=== PATIENT | male | born 1975 | race Caucasian/White ===

== ENCOUNTER 2024-12-12 12:45 | Inpatient (IN) | payer BC, OTHER ==
[~2024-12-12] VITALS: Ht 167.6 cm; Wt 70.3 kg
[2024-12-12] MEDS: PERFLUTREN PROTEIN-A MICROSPHR (Optison) 0.22 MG/ML 3ML VIAL IV ONE (08:00)
[2024-12-12] MEDS ORDERED: iohexol 350MG/ML 100ml bottle IV ONE (13:19)
--- NOTE | 2024-12-12 13:23 | Physician Documentation ---
History of Present Illness ~ Chief Complaint: Stroke Alert Stated Complaint: L SIDED NUMBNESS/DIZZINESS Time Seen by MD: 13:20 Source: patient Mode of Arrival: POV HPI 48-year-old male presenting with acute onset of left-sided numbness He tells me that he felt normal this morning. At around 11:00 p.m., he stood up and suddenly developed numbness to the left side of his body. He states that he has numbness to left side of his face, his arm, and leg. It has continued since that time. He does report some associated nausea and intermittent dizziness He denies having a headache, vision changes, difficulty speaking. No weakness to his arms or legs. He is able to ambulate. No history of stroke, no history of similar symptoms. He is not on anticoagulation. Medication Reconciliation Allergies: Coded Allergies: No Known Allergies (Unverified , 12/12/24) Scheduled Atorvastatin Calcium* (Lipitor*), 1 TAB PO DAILY Clopidogrel Bisulfate (Plavix), 1 TAB PO DAILY Miscellaneous Medications Home Med List (No Home Medications), (Reported) Review of Systems Gastrointestinal: Reports: nausea Neurological: Reports: dizziness, left sided numbness; Denies: speech problem, headache Physical Exam Vital Signs: Temperature: 98.7, Source: Temporal, Heart Rate: 70, Respiratory Rate: 16, BP: 151/99, Pulse Oximetry: 100, Weight: 70.350 Oxygen Flow Rate: 0 General Appearance General: This is a pleasant and overall well-appearing middle-aged man sitting calmly in the chair HEENT: Atraumatic, oropharynx is moist Heart: Regular rate and rhythm, normal-appearing peripheral perfusion Lungs: normal work of breathing, normal oxygen saturation on room air Abdomen: Soft, nondistended, nontender all quadrants Extremities: Warm and well-perfused Neuro: Alert and oriented. The patient has mild subjective paresthesias to the lateral lower face. He reports paresthesias to the left arm and leg diffusely but reports normal sensation to my light touch exam. He has normal strength in the major muscle groups of the left upper and lower extremities. He is able to stand without difficulty. No facial droop. Speech is clear. Psychiatric: Calm and cooperative with exam Progress Results/Orders Results/Orders Orders - KEMAL NUNEZ MD Cta Neck/Head (12/12/24 13:39) Monitor (12/12/24 13:31) 2 Large Bore Ivs (12/12/24 13:31) Electrocardiogram (12/12/24 13:31) Chest,Single View (12/12/24 13:31) Accucheck (12/12/24 13:31) Page Hospitalist (12/12/24 15:51) Completed Orders - KEMAL NUNEZ MD Cta Neck/Head (12/12/24 13:39) Cbc/Diff (12/12/24 13:31) Chest,Single View (12/12/24 13:31) BMP (12/12/24 13:31) PTT (12/12/24 13:31) Pt Inr (12/12/24 13:31) Aspirin 81mg Chew Tablet (Aspirin 81mg C (12/12/24 13:50) Clopidogrel Tablet (Plavix Tablet) (12/12/24 14:47) Hgb A1c (12/12/24 12:51) Lipid Panel (12/12/24 12:51) Medications Received in ER Medications (Trade) Dose Ordered Sig/Saturnino Route PRN Reason Start Time Stop Time Status Last Admin Dose Admin (aspirin 81MG chew tablet) 324 mg ONCE ONCE PO 12/12/24 13:50 12/12/24 13:51 DC 12/12/24 14:20 324 MG (Plavix tablet) 300 mg ONCE STAT PO 12/12/24 14:47 12/12/24 14:48 DC 12/12/24 15:27 300 MG Vital Signs 12/12/24 12/12/24 12/12/24 12/12/24 13:04 13:40 13:40 14:30 Temp 98.7 Pulse 70 67 63 Resp 16 22 15 B/P (MAP) 151/99 156/93 (114) 142/65 (90) Pulse Ox 100 98 99 100 O2 Delivery Room Air* O2 Flow Rate 0 0 FiO2 21 12/12/24 16:00 Pulse 74 Resp 15 B/P (MAP) 132/45 (74) Pulse Ox 100 Laboratory Tests Test 12/12/24 12:51 White Blood Count 8.1 Red Blood Count 5.14 Hemoglobin 16.2 Hematocrit 46.6 Mean Corpuscular Volume 90.7 Mean Corpuscular Hemoglobin 31.5 H Mean Corpuscular Hemoglobin Concent 34.8 Red Cell Distribution Width 12.9 Platelet Count 247 Mean Platelet Volume 8.5 Neutrophils (%) (Auto) 62.6 Lymphocytes (%) (Auto) 29.3 Monocytes (%) (Auto) 6.7 Eosinophils (%) (Auto) 1.0 Basophils (%) (Auto) 0.4 Neutrophils # (Auto) 5.1 Lymphocytes # (Auto) 2.4 Monocytes # (Auto) 0.5 Eosinophils # (Auto) 0.1 Basophils # (Auto) 0.0 CBC Comment Prothrombin Time 10.0 INR International Normalized Ratio 1.0 Activated Partial Thromboplast Time 29 Coagulation Comments Sodium Level 141 Potassium Level 3.9 Chloride Level 105 Carbon Dioxide Level 27.9 Anion Gap 8 Blood Urea Nitrogen 12 Creatinine 0.97 Estimated GFR/1.73 m2 82 BUN/Creatinine Ratio 12.4 Glucose Level 115 H Hemoglobin A1c 5.1 Calcium Level 8.9 Albumin 3.9 Triglycerides Level 142 H Cholesterol Level 202 H LDL Cholesterol 133 H HDL Cholesterol 48 Cholesterol/HDL Ratio 4.2 Chemistry Comments EKG/XRAY/CT/US/VASC/MRI CT : Impression I personally reviewed the CT scan, in CTA head and neck, and this shows no acute hemorrhage, no large vessel occlusion, no brain mass Consults/PCP Consults/PCP : Additional Comment Consult: I spoke to stroke Neurology. They evaluated the patient, and recommend admission for MRI and further stroke workup. They recommend aspirin and Plavix and a statin Consult: I spoke to the internal medicine service, for admission in the hospital Medical Decision Making Differential Dx:Considerations: Include: CVA, Electrolyte imbalance, Subarachnoid Hemorrhage, TIA Additional Information The patient presents with sudden onset of left-sided numbness. On my initial evaluation in triage, he does have numbness but no other focal neurologic deficits. Stroke order set was initiated. Stroke neurology evaluated the patient as well. Head CT without acute hemorrhage or mass. CTA without large vessel occlusion. Labs were unremarkable including no electrolyte derangement. No other obvious cause identified for his symptoms. Initially, the patient declined admission, and wanted to leave A. My plan was to discharge him with aspirin, Plavix, and a statin. However, he then developed worsening numbness to his left side and decided to stay and be admitted. He will be admitted to the medicine service for further workup and treatment. Departure Time of Disposition: 14:51 Disposition: 07 LEFT AGAINST MEDICAL ADVICE Impression: Primary Impression: Transient cerebral ischemia Additional Impression: Paresthesias Discharge Instructions: Stroke Prevention, [id number] Referrals: NO PRIMARY CARE PROVIDER (PCP) Prescriptions Atorvastatin Calcium* (Lipitor*) 80 Mg Tablet 1 TAB PO DAILY for 30 Days, #30 TAB 6 Refills Prov: KEMAL NUNEZ MD 12/12/24 Clopidogrel Bisulfate (Plavix) 75 Mg Tablet 1 TAB PO DAILY for 21 Days, #21 TAB 0 Refills Prov: KEMAL NUNEZ MD 12/12/24 Comments The exact cause of your symptoms is unclear, but could represent a stroke or TIA. The stroke neurologist recommended admission for an MRI and further testing. Treatment plan per the stroke neurologist: Please take aspirin 81 mg daily ongoing. Please take the Plavix 75 mg daily for 21 days and then stop Please start taking atorvastatin daily, to help lower cholesterol and help prevent a stroke. All of these medications hopefully will help prevent worsening symptoms or a stroke. Please try to make an appointment with the primary care doctor soon as possible for further evaluation Returns to the emergency department if you have any worsening symptoms. Education Educated: Patient Educated regarding: diagnosis, treatment, need for follow up Signature Scribe Signature: [email or web address] Attestation: KEMAL Holloway MD December 12, 2024 13:23
[2024-12-12] MEDS ORDERED: NO HOME MEDS (13:40)
--- NOTE | 2024-12-12 13:43 | RADIOLOGY REPORT ---
CT CT STROKE ALERT Indication: Stroke EXAM DATE: 12/12/2024 01:19 PM COMPARISON: None TECHNIQUE: CT of the head without intravenous contrast. RADIATION DOSE: CTDIvol: 57 mGy, DLP: 1097 mGy*cm FINDINGS: There is no intracranial hemorrhage. There is no extra-axial fluid, mass, mass effect or midline shif t. The ventricles are midline and normal in size. Basilar cisterns are patent. Jones-white differentia tion is maintained. Mastoids well pneumatized. 1 cm left maxillary sinus mucosal retention cyst / polyp.. Imaged portion of the orbits are unremarkable. IMPRESSION: 1. No intracranial hemorrhage or mass effect.
[2024-12-12 13:49] LABS: BASOPHILS % (AUTO) 0.4 % (0-1); EOSINOPHILS # (AUTO) 0.1 X10'3 (0-0.9); HEMATOCRIT 46.6 % (42.0-52.0); HEMOGLOBIN 16.2 g/dl (14.0-17.9); LYMPHOCYTES # (AUTO) 2.4 X10'3 (1.1-4.8); LYMPHOCYTES % (AUTO) 29.3 % (21-51); MEAN CORPUSCULAR HEMOGLOBIN 31.5 PG (27.0-31.0); MEAN CORPUSCULAR HGB CONC 34.8 g/dL (33.0-36.5); MEAN CORPUSCULAR VOLUME 90.7 FL (78-98); MEAN PLATELET VOLUME 8.5 FL (7.4-10.4); MONOCYTES # (AUTO) 0.5 X10'3 (0-0.9); MONOCYTES % (AUTO) 6.7 % (2-12); NEUTROPHILS # (AUTO) 5.1 X10'3 (1.8-7.7); NEUTROPHILS % (AUTO) 62.6 % (42-75); PLATELET COUNT 247 X10'3 (140-440); RED BLOOD COUNT 5.14 X10'6 (4.70-6.10); RED CELL DISTRIBUTION WIDTH 12.9 % (11.5-14.5); WHITE BLOOD COUNT 8.1 X10'3 (4.5-11.0)
[2024-12-12 13:55] LABS: APTT 29 SECONDS (22-32)
--- NOTE | 2024-12-12 13:55 | CONSULTATION REPORT ---
History of Present Illness Providers to CC ~ Allergies: Coded Allergies: No Known Allergies (Unverified , 12/12/24) Home Medications Home Medications Active Reported No Home Medications (Home Med List) Each Physical Exam Last Vital Signs Recorded: Temperature: 98.7, Source: Temporal, Heart Rate: 70, Respiratory Rate: 16, BP: 151/99, Pulse Oximetry: 98, Weight: 70.350 Results Diagram Lab Result Diagram: 12/12/24 1251 Assessment/Plan Additional Plan [facility] Note # Demographics Consult Type: Acute Stroke Level 1 (0-4.5 hrs) Patient Location: Emergency Room First Name: Richard Last Name: Jacqueline Date of : 1975 Age: 48 Gender: Male Facility: [facility] Time of Initial Page (): 12/12/2024 13:36 Time of Return Call (): 12/12/2024 13:37 # HPI Chief Complaint: - numbness History: 48 y/o M was sitting in a meeting when he got dizzy followed by numbness of his face. Went to lunch and his left side felt tingling like it was falling asleep. Symptom onset approx 11 AM. No similar symptoms previously. No provoking factor. Now improved. On no medications at baseline. No associated headache. Symptoms were coming in waves. # Scores Time of exam and NIHSS (): 12/12/2024 13:40 Level of Consciousness 1a: [0] = Alert; keenly responsive LOC Questions 1b: [0] = Answers both questions correctly LOC Commands 1c: [0] = Performs both tasks correctly Best Gaze 2: [0] = Normal Visual 3: [0] = No visual loss Facial Palsy 4: [0] = Normal symmetrical movements Motor Arm Left 5a: [0] = No drift Motor Arm Right 5b: [0] = No drift Motor Leg Left 6a: [0] = No drift Motor Leg Right 6b: [0] = No drift Limb Ataxia 7: [0] = Absent Sensory 8: [1] = Iuci-[id number] sensory loss Best Language 9: [0] = No aphasia Dysarthria 10: [0] = Normal Extinction and Inattention 11: [0] = No abnormality NIHSS Total: 1 ABCD2 Score for TIA: [0] = Age >/= 60 years: No [1] = BP >/= 140/90: Yes [0] = Clinical features of the TIA: other symptoms [2] = Duration of symptoms: >/= 60 minutes [0] = History of diabetes: No ABCD2 Total: 3 # Data Head CT: - no bleed - per radiologist read # Assessment Impression: Minor stroke vs TIA # Plan Thrombolytic/Intervention: NOT IV Thrombolysis or IA Intervention candidate Thrombolytic Exclusion (< 3 hour window): - non-disabling deficit Intraarterial Exclusion: - clinical exam not consistent with presence of large vessel occlusion (LVO), can reconsider if LVO found on vascular imaging Target Blood Pressure: SBP < 220 Labs: - hemoglobin A1c - lipid panel Imaging: (urgency: routine): - MRI Brain without contrast Diagnostic Test: - echo with bubble study Therapy/Evaluation: - PT/OT evaluation - speech/swallow consultation Medication: - Plavix 300 mg PO x1 now, then 75 mg daily x 21 days + asa 81mg x 21 days, followed by monotherapy thereafter - start statin with goal of LDL < 70 Other: - If patient has any neurological deterioration please call me back immediately - LDL < 70 - permissive hypertension - telemetry monitoring - I have discussed my recommendations with the referring provider # Logistics Attestation of consult completion: The patient is located at: [facility]. Facility staff participated in the visit. I performed this telemedicine visit from my offsite office utilizing interactive 2 way audio and visual telecommunication technology. Total time spent in telemedicine encounter: I spent 15 minutes reviewing clinical data and/or imaging, obtaining history, examining the patient, communicating with the onsite care team, and in preparation of this report. # Demographics First Name: Richard Last Name: [facility] Facility: [facility] MONI KYLE MD December 12, 2024 13:55
[2024-12-12 13:59] LABS: ALBUMIN 3.9 G/DL (3.4-5.0); ANION GAP 8 (8-16); BLOOD UREA NITROGEN 12 MG/DL (7-18); BUN/CREATININE RATIO 12.4 (10.0-20.0); CALCIUM 8.9 MG/DL (8.5-10.1); CHLORIDE 105 MMOL/L (99-107); CREATININE 0.97 MG/DL (0.60-1.10); GLUCOSE 115 MG/DL (70-104); POTASSIUM 3.9 MMOL/L (3.5-5.1); SODIUM 141 MMOL/L (135-145); TOTAL CARBON DIOXIDE 27.9 MMOL/L (24-32); eCRCL 82 ML/MIN; eGFR 82 ML/MIN
--- NOTE | 2024-12-12 14:05 | RADIOLOGY REPORT ---
CHEST RADIOGRAPH Indication: Stroke Alert Technique: Single frontal view of the chest was obtained Comparison: None FINDINGS: Lines and Tubes: None Lungs: No focal consolidation. Pleura: No effusion. No pneumothorax. Cardiomediastinal contours: Unremarkable Bones: No acute osseous abnormality. IMPRESSION: No acute cardiopulmonary disease.
[2024-12-12] MEDS: aspirin 81mg tab.chew PO ONE (14:20)
--- NOTE | 2024-12-12 14:24 | RADIOLOGY REPORT ---
Procedure: CT CTA NECK/HEAD HISTORY: LEFT SIDED NUMBNES, DIZZINESS Comparison Study: CT head 12/12/2024 Exam Date:12/12/2024 01:27 PM TECHNIQUE: CTA head without and with intravenous contrast. CTA neck with intravenous contrast. 3D mayelin Expreem postprocessing was performed and images were used for interpretation and reporting. 100 cc of Omni paque 300 contrast was injected intravenously. All CT scans at this medical facility are performed using dose modulation techniques as appropriate t o a performed exam including the following: Automated exposure control was utilized; adjustment of th e MA and/or KV according to patient size; and use of iterative reconstruction technique. Radiation Dose : CT Dose: CTDI volume is 13 mGy. Dose-length product is 539 mGy*cm FINDINGS: CTA head: The intracranial internal carotid, anterior and middle cerebral arteries demonstrate normal caliber w ithout hemodynamically significant stenosis or occlusion. The vertebral, basilar, and posterior cerebral arteries also demonstrate normal caliber without hemod ynamically significant stenosis or occlusion. There is no evidence of intracranial arterial aneurysm or arteriovenous malformation. The early parenchymal enhancement is grossly unremarkable. CTA neck: The visualized thoracic aortic arch and proximal great vessels are unremarkable. The bilateral common, internal and external carotid arteries are patent without hemodynamically signi ficant stenosis. The right and left vertebral arteries are patent without flow-limiting stenosis or obvious dissectio n.. The neck soft tissues appear within normal limits. Lung apices are clear. IMPRESSION: 1. No hemodynamically significant stenosis, proximal occlusion or aneurysm in the intracranial arteri es. 2. No hemodynamically significant stenosis in the cervical segments of the carotid and vertebral armida fernanda. HS:Y
[2024-12-12] MEDS ORDERED: ATOR-429 PO (15:16)
[2024-12-12] MEDS ORDERED: CLOP-32 PO (15:16)
[2024-12-12] MEDS: clopidogrel 300mg tablet PO STA (15:27)
[2024-12-12] MEDS ORDERED: potassium Cl 40MEQ/1/2NS 520ml 520 ML IV PRN (16:10)
[2024-12-12] MEDS ORDERED: magnesium sulf-water 2g/50mL 50 ML IV PRN (16:10)
[2024-12-12] MEDS ORDERED: magnesium hydroxide 30ml (MOM) UD suspension PO PRN (16:10)
[2024-12-12] MEDS ORDERED: potassium Cl 20 mEq SR tablet PO PRN ×2 (16:10)
[2024-12-12] MEDS ORDERED: magnesium sulf-water 4G/100mL 100 ML IV PRN (16:10)
[2024-12-12] MEDS ORDERED: acetaminophen 325mg tablet PO PRN (16:10)
[2024-12-12] MEDS ORDERED: ondansetron/PF 4mg/2ml inj IV PRN (16:10)
[2024-12-12] MEDS ORDERED: mag hydrox/Alum hydrox/simeth 30ml oral suspension PO PRN (16:10)
[2024-12-12] MEDS ORDERED: hydrALAZINE 20mg/ml inj. IV PRN (16:15)
[2024-12-12] MEDS: atorvastatin 20mg tablet PO ONE (16:31)
[2024-12-12 16:40] LABS: CHOL/HDL RATIO 4.2 (0.00-4.99); CHOLESTEROL 202 MG/DL (0-200); HDL CHOLESTEROL 48 MG/DL (35-60); LDL CHOLESTEROL 133 MG/DL (50-100); TRIGLYCERIDES 142 MG/DL (20-135)
--- NOTE | 2024-12-12 16:47 | HISTORY AND PHYSICAL ---
History & Physical Providers to CC ~ History of Present Illness Reason for Admit\Complaint: r/o cva History of Present Illness Richard Phillips is a 48-year-old male with no reported past medical history other than chronic tobacco abuse and alcoholism with no reported home medications who presented to the ED with chief complaint of acute onset persistent left-sided weakness of his face, arm with associated symptoms of intermittent nausea and dizziness that started today around 11:00am when he was at work. Patient denies prior NC/CAD, CVA, cardiac arrhythmia, DVT/PE, or GIB. Patient denies syncope, slurred speech, blurry vision, headache, chest pain, palpitations, shortness of breath, abdominal pain, n/v/d, fever, chills, dysuria. Initial diagnostic findings including CT head, CTA head/neck, chest x- ray were negative. EKG sinus 67 bpm, no ST elevation/depression. Teleneurologist was consulted. Patient is to be admitted on telemetry for further workups and treatment. Allergies: Coded Allergies: No Known Allergies (Unverified , 12/12/24) Home Medications Home Medications Active Lipitor* (Atorvastatin Calcium) 80 Mg Tablet 1 Tab PO DAILY 30 Days Plavix (Clopidogrel Bisulfate) 75 Mg Tablet 1 Tab PO DAILY 21 Days Reported No Home Medications (Home Med List) Each Past Medical History Past Medical History Chronic tobacco abuse Chronic alcohol use Methamphetamine and ecstasy abuse, 20 years ago Past Surgical History Surgical History Comment Bilateral inguinal hernia repair, 20 years ago Past Social History Social History Comment Alcohol: 2-5 beer/alcohol daily Tobacco: Current smoker, 30 pack-year cigarette smoking history Illicit drug use: Methamphetamine and ecstasy use 20 years ago Living situation: Lives at home with roommate ROS ROS Other than positives in HPI, all 14 review of systems are negative Exam Vitals: Vital Signs Date Time Temp Pulse Resp B/P (MAP) Pulse Ox O2 Delivery O2 Flow Rate FiO2 12/12/24 14:30 63 15 142/65 (90) 100 12/12/24 13:40 Room Air* 0 21 12/12/24 13:04 98.7 General: A&Ox 3, NAD HEENT: Normocephalic, PERRLA Neck: Supple, trachea midline, no JVD Chest: Clear to auscultation bilaterally Cardiovascular: RRR, S1&S2 Abdomen: Soft and nontender Extremities: No cyanosis/clubbing/or edema Central Nervous System: CN II-XII intact, no focal deficits Musculoskeletal: No paraspinal muscle tenderness, no muscle spasm Skin: Warm and intact Diagnostic Data Last Recorded Lab Results: 12/12/24 1251 12/12/24 1251 Diagnostic Data: Laboratory Tests Test 12/12/24 12:51 Prothrombin Time 10.0 SECONDS (9.0-12.0) INR International Normalized Ratio 1.0 INR Activated Partial Thromboplast Time 29 SECONDS (22-32) Coagulation Comments Additional Plan 48-year-old male with no reported past medical history other than chronic tobacco abuse and alcoholism with no reported home medications who presented to the ED with chief complaint of acute onset persistent left-sided weakness of his face, arm with associated symptoms of intermittent nausea and dizziness that started today around 11:00am when he was at work. # CVA vs TIA -CT head, CTA head/neck, chest x-ray were negative, EKG sinus 67 bpm, no ST elevation/depression -Teleneurologist Dr. Nick Duke consulted with recommendation for DAPT, high- intensity statin, permissive hypertension SBP>220 -follow lipid panel, A1c, TTE, tele # Chronic tobacco abuse # Chronic alcoholism -nicotine patch, mild alcohol withdrawal protocol # Hx methamphetamine abuse, 20 years ago # Hx excess abuse, 20 years ago -UDS DVT/VTE prophylaxis: heparin Code status: Full code I spent a total of 35 minutes discussing Advanced Care Planning measures with the patient. Advance care planning: Discussed with patient the importance of advance care planning in case of emergent situation. We discussed various resuscitative measures/ ACP with the patient at the time of admission. Patient voiced understanding and patient has decided on a full code status. Date of Service: December 12, 2024 Billing Provider: MIC PALACIOS Common Visit Codes: 99921-[id number] INP/OBS CARE (HIGH) Secondary Visit Codes: [id number] CARE PLAN 30 MINUTES MIC PALACIOS December 12, 2024 16:47
[2024-12-12] MEDS ORDERED: haloperidol 5mg tablet PO PRN (16:50)
[2024-12-12] MEDS ORDERED: LORazepam 1 MG tablet PO PRN (16:50)
[2024-12-12] MEDS ORDERED: haloperidol lactate 5mg/ml inj IM PRN (16:50)
[2024-12-12] MEDS ORDERED: LORazepam 2 mg/ml vial IV PRN (16:50)
[2024-12-12 16:52] LABS: HEMOGLOBIN A1C 5.1 % (4.5-6.2)
--- NOTE | 2024-12-12 17:25 | RADIOLOGY REPORT ---
PROCEDURE: MR MRI HEAD INDICATION: CVA EXAM DATE: 12/12/2024 04:43 PM COMPARISON: None TECHNIQUE: MRI of the brain without intravenous contrast. FINDINGS: Limited by motion. Diffusion weighted images of the brain demonstrate no evidence of acute infarction. There is no evidence of acute intracranial hemorrhage, extra-axial collection, mass effect, midline s hift, herniation or hydrocephalus. The ventricles, sulci and cisterns appear age appropriate. The signal intensities of the brain parenchyma are within normal limits. There are no signal abnormalities on the susceptibility weighted sequences. The major vascular flow voids are present. The visualized paranasal sinuses and mastoid air cells are clear. The surrounding soft tissues and o sseous structures are unremarkable. IMPRESSION: 1. No evidence of acute infarction, intracranial hemorrhage, mass effect or hydrocephalus. HS:Y
[2024-12-12 19:25] VITALS: BP 151/95; PULSE 66; RESP 16; TEMP 97.8; O2SAT 98
[2024-12-12] MEDS: docusate sod 100mg capsule PO SCH (20:00)
[2024-12-12] MEDS: K and/or MAG REPLACEMENT MC SCH (20:00)
--- NOTE | 2024-12-12 20:15 | CARDIOLOGY REPORT ---
APPROVED REPORT EXAM: Comprehensive 2D, Doppler, and color-flow Echocardiogram with saline. Patient Location: ER RM 1 Blood Pressure: 132/45 mmHg Heart Rate: 62 bpm Rhythm: Sinus Indications CVA/TIA Tobacco Abuse Alcohol Abuse HX of Methamphetamine Use NO PROFESSOR OF GEOLOGY NO Previous ECHO 2D Dimensions LA Diam3.1 cm IVSd 1.0 (0.7-1.1cm) LVDd 4.5 cm PWd 1.0 (0.7-1.1cm) IVSs 1.0 (0.8-1.2cm) LVDs 2.9 (2.5-4.0cm) PWs 1.5 (0.8-1.2cm) LVOT Diameter 2.00 (1.8-2.4cm) LVEF(%) 66.6 (>50%) Ao Asc Diam.3.25 cm IVC 14.36 mmFS (%) 36.7 % SV 62.9 ml CO 3.8 L/min M-Mode Dimensions Left Atrium(MM) 3.16 (2.5-4.0cm) Aortic Root 3.16 (2.2-3.7cm) Aortic Cusp Exc 2.06 (1.5-2.0cm) MV EPSS 0.3 (<0.5cm) Aortic Valve AoV Peak Lui. 145.4 cm/s AoV VTI 25.7 cm AO Peak GR. 8.5 mmHg AO Mean GR. 4 mmHg LVOT VTI 23.94 cm LVOT Peak Lui. 134.9 cm/s MILAGRO(VTI)/BSA 2.92 cm2/m2 MILAGRO (VTI) 2.92 cm2 Mitral Valve MV E Velocity 93.9 cm/s MV Peak Gr. 4 mmHg MV DECEL TIME 232 ms MV A Velocity 76.6 cm/s MV PHT 68 ms E/A Ratio 1.2 MVA (PHT) 3.24 cm2 MV ZVum179.5 cm/s TDI Lateral E' P. V15.99 cm/s E/Lateral E' 5.9 Tricuspid Valve TR P. Velocity 250 cm/s RAP ESTIMATE 10 mmHg TR Peak Gr. 25 mmHg RVSP 35 mmHg LEFT VENTRICLE Normal LV size and wall thickness. Overall systolic function is normal. LVEF is 65-70%. RIGHT VENTRICLE RV is normal size and function. ATRIA The left atrium size is normal. Saline study was performed with 2 IV injections of 10 ccs of agitated normal saline at rest, with cough, and with valsalva. Negative saline study for right to left flow. AORTIC VALVE Trileaflet AV appears mildly sclerotic without stenosis. No insufficiency. MITRAL VALVE Mitral valve leaflets are mildly thickened with mild annular calcification. No stenosis. Trace regurg itation. TRICUSPID VALVE The tricuspid valve is normal in structure with mild regurgitation. PULMONIC VALVE The pulmonary valve is normal in structure with physiologic insufficiency. GREAT VESSELS The aortic root is normal in size. The ascending aorta is normal in size. The IVC is normal in size a nd collapses >50% with inspiration. PERICARDIUM Normal pericardium. No effusion. Other Information Study Quality: Adequate Conclusion Normal LV size and wall thickness. Overall systolic function is normal. LVEF is 65-70%. RV is normal size and function. The left atrium size is normal. Saline study was performed with 2 IV injections of 10 ccs of agitated normal saline at rest, with cou gh, and with valsalva. Negative saline study for right to left flow. Trileaflet AV appears mildly sclerotic without stenosis. No insufficiency. Mitral valve leaflets are mildly thickened with mild annular calcification. No stenosis. Trace regu rgitation. The tricuspid valve is normal in structure with mild regurgitation. Normal pericardium. No effusion.
[2024-12-12] MEDS: heparin, porcine 5000 units/ml vial SQ SCH (20:17)
[2024-12-12 22:00] VITALS: BP 145/57; PULSE 58; RESP 18; TEMP 96.8; O2SAT 95
[2024-12-13 02:00] VITALS: BP 117/79; PULSE 54; RESP 16; TEMP 98.4; O2SAT 98
[2024-12-13 06:00] VITALS: BP 108/67; PULSE 55; RESP 16; TEMP 98.2; O2SAT 97
[2024-12-13 07:30] LABS: CHOL/HDL RATIO 4.6 (0.00-4.99); CHOLESTEROL 182 MG/DL (0-200); FREE T4 (FREE THYROXINE) 0.87 NG/DL (0.73-1.40); HDL CHOLESTEROL 40 MG/DL (35-60); LDL CHOLESTEROL 119 MG/DL (50-100); MAGNESIUM 2.2 MG/DL (1.5-2.4); POTASSIUM 4.5 MMOL/L (3.5-5.1); THYROID STIMULATING HORMONE 2.81 ulU/ml (0.34-4.50); TRIGLYCERIDES 184 MG/DL (20-135)
--- NOTE | 2024-12-13 07:42 | ELECTROCARDIOGRAPH REPORT ---
[facility] Test Date: 2024-12-12 Test Time: 13:43:39 Pat Name: VIGNESH LYLES Department: EMERGENCY ROOM Room: ORTHO [facility] Gender: M Hr Consultant: : 1975 Requested By: KEMAL NUNEZ Order Number: [id number] Reading MD: Measurements Intervals [place] Rate: 67 P: 11 VT: 157 QRS: 23 QRSD: 109 T: 5 QT: 390 QTc: 412 Interpretive Statements Sinus rhythm Low voltage, precordial leads Borderline T wave abnormalities Please click the below link to view image of tracing.
[2024-12-13] MEDS: nicotine 14mg patch - 24hr TD SCH (08:00)
[2024-12-13] MEDS ORDERED: ASPI-1071 PO (08:50)
[2024-12-13] MEDS ORDERED: CLOP75TA34 PO (08:52)
[2024-12-13] MEDS ORDERED: ATOR20TA66 PO (08:52)
[2024-12-13] MEDS: aspirin 81mg, enteric-coated 1 TAB TABLET.DR PO SCH (08:56)
[2024-12-13] MEDS: clopidogrel 75mg tablet PO SCH (08:56)
--- NOTE | 2024-12-13 11:02 | DISCHARGE SUMMARY ---
Discharge Summary Providers to CC ~ Discharge Summary Admission Diagnosis: TIA Hospital Course DATE OF ADMISSION: 12/12/24 DATE OF DISCHARGE: 12/13/24 Discharge Diagnosis\Comment: TIA CVA- ruled out HLD, ASCVD score 10.6% Chronic tobacco abuse Chronic alcoholism Hx methamphetamine abuse, 20 years ago Hx excess abuse, 20 years ago Operations\Procedures: None Consultants: Teleneurologist Dr. Nick Duke Complications: None Condition on DC: Stable New Medications: Aspirin (Ecotrin*) 81 Mg Tablet.dr 1 TAB PO DAILY for 90 Days, #90 TAB.SR Atorvastatin Calcium (Atorvastatin Calcium) 20 Mg Tablet 80 MG PO HS for 90 Days, #90 TAB Clopidogrel Bisulfate (Clopidogrel) 75 Mg Tablet 75 MG PO DAILY for 20 Days, #20 TAB Do not stop medication unless instructed by prescriber. Continued Medications: Home Med List (No Home Medications) Each Discontinued Medications: Atorvastatin Calcium* (Lipitor*) 80 Mg Tablet 1 TAB PO DAILY for 30 Days, #30 TAB 6 Refills Clopidogrel Bisulfate (Plavix) 75 Mg Tablet 1 TAB PO DAILY for 21 Days, #21 TAB 0 Refills Discharge Summary: History of Present Illness Richard Phillips is a 48-year-old male with no reported past medical history other than chronic tobacco abuse and alcoholism with no reported home medications who presented to the ED with chief complaint of acute onset persistent left-sided weakness of his face, arm with associated symptoms of intermittent nausea and dizziness that started today around 11:00am when he was at work. Patient denies prior OK/CAD, CVA, cardiac arrhythmia, DVT/PE, or GIB. Patient denies syncope, slurred speech, blurry vision, headache, chest pain, palpitations, shortness of breath, abdominal pain, n/v/d, fever, chills, dysuria. Patient is to be admitted on telemetry for further workups and treatment. Hospital Course Diagnostic findings including CT head, CTA head/neck, chest x-ray were negative. EKG sinus 67 bpm, no ST elevation/depression. Teleneurologist Dr. Nick Duke was consulted with recommendation for DAPT and statin. Subsequent MRI head came back negative. TTE was unremarkable with LVEF of 65-70% without significant valvular heart disease. Telemetry remained sinus in 60s. Patient was also put on mild alcohol withdrawal. Patient did not experience further complications throughout the entire hospital stay and reported symptoms of left-sided numbness and tingling sensation resolved completely in less than 24 hours. Patient was seen and examined on the day of discharge. On day of discharge, vss and labs unremarkable. Patient expresses willingness to be discharged and feels ready to be discharge. All labs, diagnostic workups, discharge plan discussed with patient in details during visit before discharge. Prior to discharge, I spent extensive time on smoking cessation, alcohol abstinence, medication compliance given risk for potential CVA and related ASCVD event. Patient voiced full understanding. All questions and concerns answered to the best of my professional knowledge. Patient ambulates independently. Patient is to be discharged to home to self and to follow up with PCP within 2 weeks. Physical Exam General: A&Ox 3, NAD HEENT: Normocephalic, PERRLA Neck: Supple, trachea midline, no JVD Chest: Clear to auscultation bilaterally Cardiovascular: RRR, S1&S2 GI: Soft and nontender Extremities: No cyanosis/clubbing/or edema MANAGER IN HOME: CN II-XII intact, no focal deficits Musculoskeletal: No paraspinal muscle tenderness, no muscle spasm Skin: Warm and intact *Problems/Diagnosis: (1) Transient cerebral ischemia Status: Acute Total Time Spent on D/C: > 30 Minutes Date of Service: December 13, 2024 Billing Provider: MIC PALACIOS Common Visit Codes: 33554-BTX/OBS DISCH DAY >30min MIC PALACIOS December 13, 2024 10:52
[2024-12-13] MEDS ORDERED: atorvastatin 20mg tablet PO SCH (21:00)
[2024-12-16] MEDS ORDERED: thiamine 100mg tablet PO SCH (08:00)
[2024-12-17] MEDS ORDERED: folic acid 1mg tablet PO SCH (08:00)
== END 2024-12-13 10:15 | disposition home or self-care (01) | DRG 69 ==
LOC: ER 12:45 → ED HOLD 16:12 → ORTHO 4S 19:14
PROVIDERS: ADMIT Nurse Practitioner Family; ATTEND Nurse Practitioner Family
PROC: B3251ZZ Computerized Tomography (CT Scan) of Bilateral Common Carotid Arteries using Low Osmolar Contrast (ICD-10-PCS; principal; 2024-12-12)
PROC: B32G1ZZ Computerized Tomography (CT Scan) of Bilateral Vertebral Arteries using Low Osmolar Contrast (ICD-10-PCS; 2024-12-12)
PROC: B32R1ZZ Computerized Tomography (CT Scan) of Intracranial Arteries using Low Osmolar Contrast (ICD-10-PCS; 2024-12-12)
PROC: B3281ZZ Computerized Tomography (CT Scan) of Bilateral Internal Carotid Arteries using Low Osmolar Contrast (ICD-10-PCS; 2024-12-12)
DX: G45.9 Transient cerebral ischemic attack, unspecified (principal); F10.239 Alcohol dependence with withdrawal, unspecified; F17.210 Nicotine dependence, cigarettes, uncomplicated; E78.5 Hyperlipidemia, unspecified; F15.10 Other stimulant abuse, uncomplicated; Z79.01 Long term (current) use of anticoagulants; Z79.899 Other long term (current) drug therapy
CPT/HCPCS: 36415; 70450; 70496; 70498; 70551; 71045; 80048; 80061; 83036; 83735; 84132; 84439; 84443; 85025; 85610; 85730; 87081; 93005; 93306; 99285; G0378; J1644; Q9967